=== PATIENT | male | born 1980 | race African-American/Black ===

== ENCOUNTER 2018-03-30 19:01 | Observation (INO) | payer OTHER ==
[~2018-03-30 19:01] MED LIST: ISOVUE-370 76%-LOCM 1 ML ONE
--- NOTE | 2018-03-30 21:47 | CT ---
CTA THORAX WITH CONTRAST: (Computed Tomographic Angiography, chest(noncoronary) with contrast material, and image postprocessin g) (PE protocol) DATE: 03/30/18 TIME: 9:22 p.m. HISTORY: 37-year-old male with acute chest pain, dyspnea and hemoptysis. TECHNIQUE: IV injection of iodinated contrast. Scan acquisition timing attempted to coincide with iodinated contrast bolus reaching maximal density in pulmonary arteries. 3D MIP reconstructions. FINDINGS: Pulmonary thromboembolism: None. Lungs: Clear. Pneumothorax: None. Pleural effusion: None. Thoracic aorta: No aneurysm or dissection. Mediastinum: No lymphadenopathy or other mass. Idalia: No lymphadenopathy or other mass. IMPRESSION: Normal. smita[] POS: ZAYRA
[2018-03-30] MEDS ORDERED: Nitroglycerin 0.4 MG TAB (25 Tab Bottle) PO PRN (22:22)
[2018-03-30 22:33] LABS: Troponin I Less than 0.010 ng/mL (< 0.028)
[2018-03-30 23:46] VITALS: BMI 38.9
[2018-03-30] MEDS ORDERED: Ondansetron HCl/PF 4 MG/2 ML Vial IVP PRN (23:57)
[2018-03-30] MEDS ORDERED: Ondansetron ODT 4 MG TAB SL PRN (23:57)
[2018-03-30] MEDS ORDERED: Acetaminophen 325 MG TAB PO PRN (23:57)
[2018-03-31 01:26] LABS: Troponin I Less than 0.010 ng/mL (< 0.028)
--- NOTE | 2018-03-31 07:59 | HP ---
PRIMARY CARE PHYSICIAN: Dr. Walter Brito. CODE STATUS: FULL CODE. TIME OF EVALUATION: 9:40 p.m. CHIEF COMPLAINT: Chest pain. HISTORY OF PRESENT ILLNESS: This is a 37-year-old male patient with past medical history of obesity, came to the hospital after having chest pain in the entire chest, pressure-like, no clear triggers, no alleviating factors, reported as moderate sudden onset, occasionally associated with cough and shortness of breath, as note the patient has upper respiratory infection 3 weeks ago and has got some relief from symptomatic treatment. He did not totally recover after initial treatment in the ER and given risk factors and concern for chest pain. We have been called to place the patient in observation for further plan and management. REVIEW OF SYSTEMS: Constitutional: No fever, no chills, no generalized weakness. Respiratory: Cough, scant sputum production, shortness of breath. Cardiovascular: Chest pain. No palpitations, shortness of breath. Gastrointestinal: No nausea, no vomiting, no diarrhea, no abdominal pain. Central Nervous System: No dizziness, no headache, no tingling, no feeling lightheaded. Genitourinary: No burning on urination. Extremities: No leg swelling. All other systems were reviewed and were negative except for the findings mentioned in the HPI. PAST MEDICAL HISTORY: Obesity. FAMILY HISTORY: The mother had a stroke. Father had a CABG. PAST SURGICAL HISTORY: Right foot surgery x2. PSYCHIATRIC HISTORY: No previous psychiatric history. SOCIAL HISTORY: No alcohol, no drugs. The patient is a former smoker, quit 2 months ago. He is at home with family. ALLERGIES: No known drug allergies. REPORTED MEDICATIONS: Tylenol No. 3 one to 1-2 tablets q.6 hours p.r.n., DuoNebs q.6 hours p.r.n. PHYSICAL EXAMINATION: VITAL SIGNS: On presentation, blood pressure 134/77, heart rate 77, respiratory rate 20, temperature 98.3, oxygen saturation 98, occasionally elevated systolic of 144 was recorded. GENERAL APPEARANCE: The patient is alert, oriented, in no acute distress. HEENT: Eyes: Normal conjunctivae. Moist oral mucosa. Anicteric. NECK: No JVD. RESPIRATORY: Bilateral air entry. No rales, no wheezing. Symmetric expansion. CARDIOVASCULAR: Normal rate, regular rhythm. No murmurs, no gallop, no edema. ABDOMEN: Soft. Normal bowel sounds. MUSCULOSKELETAL: Baseline range of motion and strength. No tenderness. SKIN: Warm and intact. No pallor, no rash, no redness. NEUROLOGIC: Baseline sensorium. No evidence of any new focal weakness. Baseline speech. Cranial nerve, sensory intact. PSYCHIATRIC: Mood is normal. No anxiety. Oriented, optimal judgment. LABORATORY AND DIAGNOSTIC DATA: Reviewed. The patient's white count 12.9, MCV 81, hemoglobin 14.5, platelet count 289,000. Coagulation was reviewed. The patient has D-dimer less than 0.27. Chemistry: Sodium 140, potassium 3.9, chloride 107, carbon dioxide 26, anion gap 11, BUN 10, creatinine 0.94, GFR greater than 90. Glucose 151, calcium 9.3, total bilirubin 0.1. CT angio of the chest was done. The patient has a normal CAT scan. EKG was reviewed. The patient has EKG with normal sinus rhythm at the rate of 73, occasional sinus arrhythmia. There are some T-wave inversions in anterior leads. ASSESSMENT AND PLAN: The patient will be placed in the hospital following medical condition: 1. Chest pain, rule out acute coronary syndrome. The patient has some T-wave inversion on the EKG, troponins are negative, will trend troponins, , to go for a stress test to rule out coronary artery disease. 2. History of upper respiratory infection, reconcile home medications. Monitor patient clinically, adjust treatment as needed. 3. Deep venous thrombosis prophylaxis. 4. Obesity. The patient has been advised to lose weight. 5. Hyperglycemia. Blood sugar 151, unclear etiology, no history of diabetes reported. The patient might have hyperglycemia secondary to acute distress versus impaired glucose tolerance will monitor, no need for any acute intervention. We will treat accordingly. HANDY
[2018-03-31] MEDS: Aspirin 325 MG TAB PO SCH (09:11)
[2018-03-31] MEDS ORDERED: Regadenoson 0.4 MG/5 ML SYRINGE ONE (12:11)
--- NOTE | 2018-03-31 14:46 | NM ---
STRESS ONLY NUCLEAR MEDICINE MYOCARDIAL PERFUSION SCAN: Date: 03/31/18 HISTORY: Chest pain. TECHNIQUE: SPECT imaging of the left ventricular myocardium was obtained during stress following the intravenous administration of 30 mCi technetium-99m labeled sestamibi. FINDINGS: There is no perfusion defect seen on stress-only imaging. Wall motion demonstrates mild diffuse hypok inesis with an EDV of 109 mL and ESV of 54 mL, left ventricular ejection fraction of 50%. IMPRESSION: No perfusion defect seen. Mild diffuse hypokinesis with an estimate left ventricular ejection fractio n of approximately 50%. POS: ZAYRA
--- NOTE | 2018-03-31 15:51 | PDOC.PN ---
- Subjective Encounter Start Date: 03/31/18 (f/u chest pain) Encounter Start Time: 15:50 Subjective: Pt denies any current chest pain. Denies any new sx, reports cough -: has been persistent for a few weeks. - Objective Vital Signs & Weight: Vital Signs (12 hours) Temp Pulse Resp BP Pulse Ox 03/31/18 07:40 97.7 F 86 20 03/31/18 07:20 97.7 F 86 20 130/97 H 97 03/31/18 05:10 97.8 F 68 20 119/59 L 96 Weight Weight 233 lb 11.2 oz I&O: 03/30/18 03/31/18 04/01/18 06:59 06:59 06:59 Intake Total 480 360 Balance 480 360 Radiology Reviewed by me: Yes (stress test (nuclear) - EF 50% with mild hypokinesis) EKG Reviewed by me: Yes (tele - sinus 60-70;s) Phys Exam - Physical Examination Constitutional: NAD Respiratory: no wheezing, no rales, no rhonchi, clear to auscultation bilateral Cardiovascular: RRR, no significant murmur Gastrointestinal: soft, non-tender, no distention, positive bowel sounds Musculoskeletal: no edema Neurological: non-focal, moves all 4 limbs Psychiatric: normal affect Skin: no rash Dx/Plan (1) Atypical chest pain Code(s): R07.89 - OTHER CHEST PAIN Status: Resolved (2) Obesity Code(s): E66.9 - OBESITY, UNSPECIFIED Status: Chronic Qualifiers: Obesity type: unspecified obesity type (3) Cough Code(s): R05 - COUGH Status: Acute - Plan * Abnormal stress test with EF 50% and mild diffuse hypokinesis. Discussed briefly with Cardiology who recommends echo prior to discharge to further evaluate as the nuclear stress test can over-estimate the EF * * cough - pt asking for refill of phenergan-codeine cough syrup - requesting he contact his PCP for this after discharge * * Reviewed CT-A chest and negative for PE * * discharge based on ability to obtain echo and results * * dvt prophy - ambulatory * gi prophy - not indicated * code status full * * reviewed plan of care with patient, no questions or further needs at end of eval.
[2018-04-01 04:54] LABS: #Basophils 0.1 thou/uL (0.0-0.2); #Eosinphils 0.3 thou/uL (0.0-0.7); #Lymphocytes 3.3 thou/uL (1.20-3.40); #Monocytes 0.8 thou/uL (0.11-0.59); %Basophils 0.4 % (0.0-1.0); %Eosinophils 2.2 % (0.0-10.0); %Lymphocytes 24.4 % (21.0-51.0); %Neutrophils 67.1 % (42.0-75.0); Hemoglobin 14.4 g/dL (14.0-18.0); Mean Corpuscular HGB CONC 32.2 g/dL (32.0-36.0); Mean Corpuscular Hemoglobin 26.8 pg (27.0-31.0); Mean Corpuscular Volume 83.2 fL (78.0-98.0); Mean Platelet Volume 8.5 fL (7.4-10.4); Platelet Count 244 thou/uL (130-400); RBC Distribution Width 12.7 % (11.5-14.5); Red Blood Cell (RBC) Count 5.39 mill/uL (4.70-6.10); White Blood Cell (WBC) Count 13.4 thou/uL (4.8-10.8)
[2018-04-01 05:12] LABS: Anion Gap 11 mmol/L (10-20); BUN (Urea Nitrogen) 9 mg/dL (8.9-20.6); Calc. Creatinine Clearance 174 mL/min (70-130); Calcium 9.1 mg/dL (7.8-10.44); Carbon Dioxide 25 mmol/L (22-29); Chloride 105 mmol/L (98-107); Estimated GFR-MDRD Greater than 90; Glucose 92 mg/dL (70-105); Potassium 4.2 mmol/L (3.5-5.1); Sodium 137 mmol/L (136-145)
[2018-04-01] MEDS: Aspirin 325 MG TAB PO SCH (08:39)
[2018-04-01 11:46] VITALS: BP 136/79; TEMP 98.1
--- NOTE | 2018-04-03 21:46 | DIS ---
DATE OF DISCHARGE: 04/01/2018 DISCHARGE DISPOSITION: Home. FOLLOWUP: With primary care physician, Dr. Lalo Samson. DISCHARGE MEDICATIONS: The patient was given a prescription for Robitussin with codeine for the next few days total of 50 mL per patient request due to persistent coughing. The patient was seen on the day of discharge. Denies any new complaints. No chest pain, shortness o f breath, palpitations. BRIEF HOSPITAL COURSE: The patient is a 37-year-old male with obesity who presented to the hospital with chest discomfort. He also had intractable cough that has been going on for past 3-4 weeks. Ple ase refer to the history and physical for further details. The patient was admitted to the hospital with a diagnosis of chest discomfort, rule out acute coronar y syndrome. He had some nonspecific ST-T wave changes. His troponins were, however, negative. He u nderwent a Cardiolite stress test that showed mild diffuse hypokinesis with the left ventricular ejec tion fraction of approximately 50%. There was no perfusion defect. An echocardiogram was done that showed ejection fraction 50%-55% with mild mitral regurgitation and mild tricuspid regurgitation. Th e case was discussed with Dr. Dias, Cardiology on-call who recommended echocardiogram. Per Dr. Shira king, the patient does not need any further workup. Per patient request, a prescription for Robit ussin-AC was provided for the next few days due to intractable coughing. A CT angiogram of the chest was negative for pneumonia or pulmonary embolism. Plan of care was discussed with the patient in detail. He stated understanding. FINAL DIAGNOSES: 1. Chest discomfort, acute coronary syndrome, ruled out. 2. Recent upper respiratory tract infection with persistent coughing. 3. Obesity with a BMI of 39.3. Plan of care was discussed with the patient in detail. He stated understanding.
== END 2018-04-01 12:11 | disposition home or self-care (01) ==
LOC: ERS 19:01 → 2SW 23:34
PROVIDERS: ADMIT Emergency Medicine; ATTEND Emergency Medicine
DX: R07.89 Other chest pain (principal); J06.9 Acute upper respiratory infection, unspecified; E66.9 Obesity, unspecified; R05 Cough; Z68.39 Body mass index [BMI] 39.0-39.9, adult
CPT/HCPCS: 36415; 71275; 78452; 80048; 84484; 85025; 93005; 93017; 93306; 94760; A9500; G0378; J2785